=== PATIENT | female | born 1945 | race Caucasian/White ===

== ENCOUNTER 2017-08-01 09:40 | Outpatient (CLI) | payer MEDICARE ==
--- NOTE | 2017-08-01 11:09 | RAD ---
TWO VIEW CHEST: History: Dyspnea. Comparison: 06-21-17 FINDINGS: The linear and parenchymal opacity in the right middle lobe obscuring the right heart boarder is unc hanged in appearance. There also appears to be a linear opacity in the left lower lobe which appears stable. Lungs otherwise appear clear and unchanged. Prominent aortic calcification again noted. Hea rt size is unchanged. IMPRESSION: Stable chest findings. POS: [facility]
== END 2017-08-01 09:41 | disposition home or self-care (01) ==
LOC: RAD 09:40
PROVIDERS: ATTEND Internal Medicine Critical Care Medicine
DX: R06.00 Dyspnea, unspecified (principal)
CPT/HCPCS: 71020

== ENCOUNTER 2017-08-06 12:11 | Outpatient (CLI) | payer MEDICARE ==
--- NOTE | 2017-08-06 16:14 | CT ---
CT OF THE THORAX WITHOUT CONTRAST: Date: 08/06/17 INDICATION: Infiltrate. COMPARISON: Radiograph dated 08/01/17. FINDINGS: There are areas of subsegmental volume loss within the right middle lobe, as well as the inferior collins gula. There is eccentric debris seen within the distal right interlobar bronchus and distal right lisa nstem bronchus which may reflect mucus. Small endobronchial lesion cannot be entirely excluded. Solid area of reticulonodularity within the superior segment of the right upper lobe on image 27 of series 3. There is scattered emphysema. There are coronary artery and thoracic aortic calcifications. Visua lized upper abdomen demonstrates normal appearing adrenal glands. Unopacified liver, spleen, and panc reas are unremarkable. No definite acute osseous abnormality is evident. IMPRESSION: 1. Soft tissue nodularity seen within the right mainstem bronchus and right interlobar bronchus may reflect mucus debris or possibly a small endobronchial lesion. Recommend follow-up examination in 6-8 weeks with vigorous coughing prior to the lung scan to demonstrate clearance. 2. Areas of subsegmental volume loss within the inferior lingula and right middle lobe likely corres ponds to the parenchymal opacity seen on the comparison radiographs. 3. Emphysema. POS: [facility]
== END 2017-08-06 12:12 | disposition home or self-care (01) ==
LOC: CT 12:11
PROVIDERS: ATTEND Internal Medicine Critical Care Medicine
DX: R91.8 Other nonspecific abnormal finding of lung field (principal); J43.9 Emphysema, unspecified; J98.4 Other disorders of lung
CPT/HCPCS: 71250

== ENCOUNTER 2017-11-21 15:01 | Emergency (ER) | payer MEDICARE ==
[2017-11-21] MEDS ORDERED: Sodium Chloride 0.9% 100 ML ONE (15:37)
[2017-11-21] MEDS ORDERED: cefTRIAXone\\ROCEPHIN 1 GM VIAL ONE (15:37)
[2017-11-21 16:08] LABS: #Basophils 0.1 thou/uL (0.0-0.2); #Eosinphils 0.1 thou/uL (0.0-0.7); #Lymphocytes 0.8 thou/uL (1.20-3.40); #Monocytes 0.6 thou/uL (0.11-0.59); #Neutrophils 4.4 thou/uL (1.40-6.50); %Basophils 0.9 % (0.0-1.0); %Eosinophils 1.5 % (0.0-10.0); %Lymphocytes 13.3 % (21.0-51.0); %Monocytes 10.3 % (0.0-10.0); %Neutrophils 74.1 % (42.0-75.0); Hemoglobin 14.9 g/dL (12.0-16.0); Mean Corpuscular HGB CONC 33.7 g/dL (32.0-36.0); Mean Corpuscular Hemoglobin 28.9 pg (27.0-31.0); Mean Corpuscular Volume 85.6 fl (81.0-99.0); Mean Platelet Volume 7.4 fL (7.4-10.4); Platelet Count 191 thou/uL (130-400); RBC Distribution Width 12.5 % (11.5-14.5); Red Blood Cell (RBC) Count 5.16 mill/uL (4.20-5.40)
[2017-11-21 16:16] LABS: Anion Gap 17 mmol/L (10-20); BUN (Urea Nitrogen) 18 mg/dL (9.8-20.1); Calc. Creatinine Clearance 0 mL/min (70-130); Calcium 9.4 mg/dL (7.8-10.44); Carbon Dioxide 22 mmol/L (23-31); Chloride 104 mmol/L (98-107); Estimated GFR-MDRD 69; Glucose 213 mg/dL (80-115); Sodium 139 mmol/L (136-145)
[2017-11-21] MEDS ORDERED: HYDROcodone/Acetaminophen 5/325 mg Tablet ONE (16:31)
== END 2017-11-21 16:40 | disposition home or self-care (01) ==
LOC: SCSER 15:01
DX: S51.851A Open bite of right forearm, initial encounter (principal); I10 Essential (primary) hypertension; I25.2 Old myocardial infarction; I25.10 Atherosclerotic heart disease of native coronary artery without angina pectoris; I73.9 Peripheral vascular disease, unspecified; J44.9 Chronic obstructive pulmonary disease, unspecified; F32.9 Major depressive disorder, single episode, unspecified; E11.9 Type 2 diabetes mellitus without complications; Z79.84 Long term (current) use of oral hypoglycemic drugs; Z79.899 Other long term (current) drug therapy; Z87.891 Personal history of nicotine dependence; Z79.82 Long term (current) use of aspirin; W55.01XA Bitten by cat, initial encounter
CPT/HCPCS: 80048; 85025; 96365; J0696; J7050

== ENCOUNTER 2017-12-04 09:33 | Outpatient (CLI) | payer MEDICARE ==
--- NOTE | 2017-12-04 10:46 | RAD ---
CHEST TWO VIEWS: Comparison: 08-01-17 History: Dyspnea. FINDINGS: Atherosclerosis of the aorta. Normal cardiac silhouette. The pulmonary vessels and hilum are normal. Costophrenic angles are clear. Hyperinflation without consolidation or mass. No pneumothorax or osseo us abnormalities. IMPRESSION: 1. Atherosclerosis. 2. No acute cardiopulmonary process. POS: [facility]
== END 2017-12-04 09:34 | disposition home or self-care (01) ==
LOC: RAD 09:33
PROVIDERS: ATTEND Internal Medicine Critical Care Medicine
DX: R06.00 Dyspnea, unspecified (principal); I70.0 Atherosclerosis of aorta
CPT/HCPCS: 71046

== ENCOUNTER 2017-12-19 09:37 | Emergency (ER) | payer MEDICARE ==
[2017-12-19] MEDS ORDERED: Lidocaine 1% w/Epinephrine 1:100K 20 ML VIAL ONE (09:53)
== END 2017-12-19 10:35 | disposition home or self-care (01) ==
LOC: SCSER 09:37
DX: S61.213A Laceration without foreign body of left middle finger without damage to nail, initial encounter (principal); E11.9 Type 2 diabetes mellitus without complications; I10 Essential (primary) hypertension; I73.9 Peripheral vascular disease, unspecified; J45.909 Unspecified asthma, uncomplicated; J44.9 Chronic obstructive pulmonary disease, unspecified; F32.9 Major depressive disorder, single episode, unspecified; Z79.4 Long term (current) use of insulin; Z79.899 Other long term (current) drug therapy; Z79.82 Long term (current) use of aspirin; W26.0XXA Contact with knife, initial encounter
CPT/HCPCS: 12001; J2001

== ENCOUNTER 2018-01-08 12:38 | Emergency (ER) | payer MEDICARE ==
[2018-01-08] MEDS ORDERED: Bacitracin Zinc Ointment 30 gm TUBE ONE (13:10)
[2018-01-08] MEDS ORDERED: Bacitracin Zinc 1 Packet ONE (13:11)
--- NOTE | 2018-01-08 13:20 | RAD ---
THREE VIEWS OF THE LEFT ANKLE: COMPARISON: None. HISTORY: Left ankle pain after falling in the flower bed. FINDINGS: Three views left ankle show a spiral fracture of the distal fibula. Mild diffuse surrounding soft ti ssue swelling is seen. No degenerative changes are present. IMPRESSION: Distal fibula fracture. POS: [facility]
[2018-01-08] MEDS ORDERED: Morphine 10 MG/ML VIAL ONE (13:26)
== END 2018-01-08 13:43 | disposition home or self-care (01) ==
LOC: SCSER 12:38
DX: S82.832A Other fracture of upper and lower end of left fibula, initial encounter for closed fracture (principal); S51.012A Laceration without foreign body of left elbow, initial encounter; E11.9 Type 2 diabetes mellitus without complications; I10 Essential (primary) hypertension; I25.2 Old myocardial infarction; I25.10 Atherosclerotic heart disease of native coronary artery without angina pectoris; J44.9 Chronic obstructive pulmonary disease, unspecified; F32.9 Major depressive disorder, single episode, unspecified; Z79.4 Long term (current) use of insulin; Z79.82 Long term (current) use of aspirin; Z79.899 Other long term (current) drug therapy; W19.XXXA Unspecified fall, initial encounter
CPT/HCPCS: 96372; J2270

== ENCOUNTER 2018-08-08 10:01 | Outpatient (CLI) | payer MEDICARE ==
--- NOTE | 2018-08-08 11:31 | MMO ---
BILATERAL DIGITAL SCREENING MAMMOGRAMS: Date: 08/08/18 HISTORY: 72-year-old female presents for digital screening mammogram. COMPARISON: 08/07/17, 08/01/16, 07/30/15, and 07/25/13. FINDINGS: This patient's mammogram was interpreted with the assistance of computer-aided detection. Scattered areas of fibroglandular density are noted bilaterally. There are stable typically benign ca lcifications. No direct or indirect evidence of malignancy. IMPRESSION: BIRADS 2: Benign Finding(s) Continue routine screening. POS: [facility]
== END 2018-08-08 10:02 | disposition home or self-care (01) ==
LOC: SCSMAMMO 10:01
PROVIDERS: ATTEND Family Medicine
DX: Z12.31 Encounter for screening mammogram for malignant neoplasm of breast (principal)
CPT/HCPCS: 77067

== ENCOUNTER 2019-03-19 08:34 | Emergency (ER) | payer MEDICARE ==
[2019-03-19 09:45] LABS: #Basophils 0.1 thou/uL (0.0-0.2); #Eosinphils 0.2 thou/uL (0.0-0.7); #Lymphocytes 1.7 thou/uL (1.20-3.40); #Monocytes 0.7 thou/uL (0.11-0.59); #Neutrophils 5.4 thou/uL (1.40-6.50); %Basophils 1.3 % (0.0-1.0); %Eosinophils 2.7 % (0.0-10.0); %Lymphocytes 20.5 % (21.0-51.0); %Monocytes 8.1 % (0.0-10.0); %Neutrophils 67.5 % (42.0-75.0); Hemoglobin 14.5 g/dL (12.0-16.0); Mean Corpuscular HGB CONC 33.1 g/dL (32.0-36.0); Mean Corpuscular Hemoglobin 29.3 pg (27.0-31.0); Mean Corpuscular Volume 88.5 fL (78.0-98.0); Mean Platelet Volume 7.2 fL (7.4-10.4); Platelet Count 248 thou/uL (130-400); RBC Distribution Width 12.5 % (11.5-14.5); Red Blood Cell (RBC) Count 4.94 mill/uL (4.20-5.40); White Blood Cell (WBC) Count 8.1 thou/uL (4.8-10.8)
[2019-03-19] MEDS ORDERED: Ondansetron PF 4 MG/2 ML Vial ONE (10:12)
[2019-03-19] MEDS ORDERED: Morphine 4 MG/ML VIAL ONE (10:12)
[2019-03-19 10:25] LABS: ALT (SGPT) 19 U/L (8-55); AST (SGOT) 15 U/L (5-34); Albumin 3.9 g/dL (3.4-4.8); Alkaline Phosphatase 96 U/L (40-150); BUN (Urea Nitrogen) 27 mg/dL (9.8-20.1); Bilirubin, Total 0.4 mg/dL (0.2-1.2); Calc. Creatinine Clearance 0 mL/min (70-130); Calcium 9.8 mg/dL (7.8-10.44); Carbon Dioxide 25 mmol/L (23-31); Chloride 103 mmol/L (98-107); Estimated GFR-MDRD 48; Globulin 3.4 g/dL (2.4-3.5); Glucose 147 mg/dL (83-110); Lipase 25 U/L (8-78); Potassium 4.4 mmol/L (3.5-5.1); Protein, Total 7.3 g/dL (6.0-8.3); Sodium 141 mmol/L (136-145)
[2019-03-19 10:26] LABS: Anion Gap 17 mmol/L (10-20)
[2019-03-19] MEDS ORDERED: metroNIDAZOLE 250 MG TAB ONE (12:16)
[2019-03-19] MEDS ORDERED: Ciprofloxacin 500 MG TAB ONE (12:16)
--- NOTE | 2019-03-19 13:29 | CT ---
CT OF THE ABDOMEN AND PELVIS WITH CONTRAST: COMPARISON: 10/28/2013. HISTORY: Abdominal pain for 9 days. The patient has had bloody stools for 3 days. TECHNIQUE: Multiple contiguous axial images were obtained in a CT of the abdomen and pelvis with contrast. P.o. contrast was administered. Coronal reformats were performed. FINDINGS: Scattered diverticula in the colon. These are more prominent in the sigmoid colon. There is subtle stranding change subjacent to the colon at the junction of the descending colon and sigmoid colon. These findings are consistent with acute diverticulitis. The small bowel is unremarkable. No free a ir, free fluid, or stranding changes are seen in the abdomen or pelvis. The liver, gallbladder, adrenal glands, spleen, and pancreas are unremarkable. The patient has a hor seshoe kidney without other significant abnormality of the kidneys. The patient is status post hysterectomy. No abdominal or pelvic lymphadenopathy are seen. Atheroscl erotic calcifications are seen in the aorta. Degenerative changes are seen in the spine. The visualized inferior thorax and abdominal wall soft t issues are unremarkable. IMPRESSION: 1. Acute diverticulitis. 2. Horseshoe kidney. POS: [facility]
== END 2019-03-19 12:50 | disposition home or self-care (01) ==
LOC: ERS 08:34
DX: K57.92 Diverticulitis of intestine, part unspecified, without perforation or abscess without bleeding (principal); I10 Essential (primary) hypertension; E86.0 Dehydration; F32.9 Major depressive disorder, single episode, unspecified; E11.51 Type 2 diabetes mellitus with diabetic peripheral angiopathy without gangrene; I25.2 Old myocardial infarction; I25.10 Atherosclerotic heart disease of native coronary artery without angina pectoris; J44.9 Chronic obstructive pulmonary disease, unspecified
CPT/HCPCS: 36415; 74177; 80053; 83605; 83690; 85025; 93005; 96361; 96374; 96375; J2270; J2405

== ENCOUNTER 2019-07-07 08:02 | Outpatient (CLI) | payer MEDICARE ==
--- NOTE | 2019-07-07 10:37 | CT ---
CT ABDOMEN AND PELVIS WITH IV CONTRAST 07/07/2019 CLINICAL INFORMATION: Left lower quadrant abdominal pain for 5 months. COMPARISON: 03/19/2019 Technique: Multiple contiguous axial CT images are obtained through the abdomen and pelvis with IV contrast. Cor onal reformatted images are provided. FINDINGS: Lower Chest: Vascular calcifications are seen in the coronary arteries as well as involving the thora cic aorta. There is minimal atelectasis present in the lingula. A 4 mm noncalcified pulmonary nodule is seen at the posterior medial right lung base. Vessels: Vascular calcifications are seen in the abdominal aorta and involving the iliac arteries. Abdomen: Portal vein:Patent Gallbladder: Within normal limits for CT imaging. Liver: within normal limits. Spleen: within normal limits. Pancreas: within normal limits. Adrenals: within normal limits. Kidneys: There is a horseshoe shaped kidney present. There is no hydronephrosis, and no renal calculi are visualized. Bowel: There is colonic diverticulosis without CT evidence of diverticulitis. Loops of small bowel ar e normal in caliber. Appendix: Not visualized. Patient reports history of prior appendectomy. Peritoneum: No ascites or free air; no fluid collection. Mesentery and Retroperitoneum: No enlarged mesenteric or retroperitoneal lymph nodes. Abdominal Wall: Small fat-containing umbilical hernia is present. Heterogeneous lobulated areas with position of associated fat density are seen in the gluteal subcutaneous adipose layer bilaterally which may be related to areas of fat necrosis and/or sites of prior injection. Pelvis: Reproductive Organs: Evidence of hysterectomy. Pelvis within normal limits. Bladder: within normal limits. Bones: No suspicious lytic or sclerotic osseous lesions are identified. IMPRESSION: 1. No acute findings are seen in the abdomen or pelvis. 2. Colonic diverticulosis without CT evidence of diverticulitis. 3. Horseshoe-shaped kidney. 4. Dense vascular calcifications.. 5. Stable 4 mm noncalcified pulmonary nodule right lower lobe.
[2019-07-07] MEDS ORDERED: Iopamidol 370 76% 100 ML VIAL ONE (13:42)
== END 2019-07-07 08:03 | disposition home or self-care (01) ==
LOC: CT 08:02
PROVIDERS: ATTEND Internal Medicine
DX: K57.32 Diverticulitis of large intestine without perforation or abscess without bleeding (principal); R10.32 Left lower quadrant pain; R85.89 Other abnormal findings in specimens from digestive organs and abdominal cavity; R91.1 Solitary pulmonary nodule
CPT/HCPCS: 74177; 82565; Q9967

== ENCOUNTER 2019-07-22 08:29 | Day surgery (SDC) | payer MEDICARE ==
[2019-07-21 13:19] VITALS: BMI 37.4
--- NOTE | 2019-07-22 15:07 | OP ---
DATE OF PROCEDURE: 07/22/2019 BRICK PITCHER SURGEON: None. PROCEDURE PERFORMED: Colonoscopy with snare polypectomy. INDICATIONS: 1. Positive Cologuard screening. 2. Left lower quadrant pain, improved. 3. Follow up recent history of diverticulitis. 4. This is the patient's first colonoscopy. MEDICATIONS: See Anesthesia record. FINDINGS: After discussion of the risks, benefits, and alternatives of the procedure, informed consent was obtained and witnessed. Pre-endoscopic cardiopulmonary examination was satisfactory. Time-out was performed before sedation was achieved. Sedation was achieved with Anesthesia assistance in the endoscopy unit. Digital rectal exam was performed, which was unremarkable. A Pentax adult colonoscope was inserted into the anus and passed forward to the cecum in the usual fashion. The cecal base was identified by the appendiceal orifice as well as the ileocecal valve. The terminal ileum was intubated, and the ileal mucosa appeared normal. The colonoscope was then slowly withdrawn in a gradual and circumferential manner with careful examination of the entire colonic mucosa. The quality of the prep was good. There were 5 sessile polyps in the ascending colon, measuring from 2 to 8 mm in diameter. These were all completely removed with hot and cold snare polypectomy, and retrieved for pathology. In the transverse colon, there were 3 sessile polyps measuring from 1 to 6 mm in diameter. These were completely removed with hot and cold snare. Only the largest polyp was able to be retrieved for pathology. In the descending colon, there were 4 sessile polyps, all measuring between 3 and 7 mm in diameter. These were all completely removed with hot snare and retrieved for pathology. In the sigmoid colon, there was a larger polyp measuring 1 cm in diameter, this was on a short stalk. It was completely removed with hot snare and retrieved for pathology. There was diverticulosis throughout the left side of the colon, but no evidence of active diverticulitis. Retroflexion in the rectum demonstrated no additional abnormalities. The colonoscope was completely withdrawn, and the patient allowed to recover. The patient tolerated the procedure well. There were no immediate postprocedure complications. IMPRESSION: 1. 13 colon polyps, all completely removed with hot and cold snare as detailed above, most of the polyps retrieved for pathology as detailed above. 2. Left-sided diverticulosis. 3. Otherwise normal exam to the terminal ileum. RECOMMENDATIONS: 1. Follow up pathology on the colon polyps. 2. Repeat colonoscopy for surveillance in 1 year. Job ID: [id number]
[2019-07-22] MEDS ORDERED: PROPOFOL 200 MG/20 ML VIAL ONE (15:26)
== END 2019-07-22 12:40 | disposition home or self-care (01) ==
LOC: SDC 08:29
PROVIDERS: ATTEND Internal Medicine
PROC: 0DBK8ZX Excision of Ascending Colon, Via Natural or Artificial Opening Endoscopic, Diagnostic (ICD-10-PCS; principal; 2019-07-22)
PROC: 0DBL8ZX Excision of Transverse Colon, Via Natural or Artificial Opening Endoscopic, Diagnostic (ICD-10-PCS; 2019-07-22)
PROC: 0DBM8ZX Excision of Descending Colon, Via Natural or Artificial Opening Endoscopic, Diagnostic (ICD-10-PCS; 2019-07-22)
PROC: 0DBN8ZX Excision of Sigmoid Colon, Via Natural or Artificial Opening Endoscopic, Diagnostic (ICD-10-PCS; 2019-07-22)
DX: D12.2 Benign neoplasm of ascending colon (principal); D12.3 Benign neoplasm of transverse colon; D12.4 Benign neoplasm of descending colon; D12.5 Benign neoplasm of sigmoid colon; K57.30 Diverticulosis of large intestine without perforation or abscess without bleeding; J44.9 Chronic obstructive pulmonary disease, unspecified; I48.91 Unspecified atrial fibrillation; I25.10 Atherosclerotic heart disease of native coronary artery without angina pectoris; E11.9 Type 2 diabetes mellitus without complications; F41.9 Anxiety disorder, unspecified; M19.90 Unspecified osteoarthritis, unspecified site; F32.9 Major depressive disorder, single episode, unspecified; I25.2 Old myocardial infarction; I10 Essential (primary) hypertension; E66.9 Obesity, unspecified; Z68.37 Body mass index [BMI] 37.0-37.9, adult; Z79.4 Long term (current) use of insulin; Z79.51 Long term (current) use of inhaled steroids; Z79.82 Long term (current) use of aspirin; Z79.899 Other long term (current) drug therapy; Z88.2 Allergy status to sulfonamides; Z88.5 Allergy status to narcotic agent; Z88.8 Allergy status to other drugs, medicaments and biological substances; Z91.018 Allergy to other foods; Z95.5 Presence of coronary angioplasty implant and graft
CPT/HCPCS: 36416; 88305

== ENCOUNTER 2020-02-22 09:31 | Inpatient (IN) | payer MEDICARE ==
[2020-02-22] MEDS ORDERED: Sodium Chloride 0.9% 1,000 ML IV SCH (10:00)
[2020-02-22] MEDS ORDERED: HYDROcodone/Acetaminophen 5/325 mg Tablet PO PRN ×2 (10:00)
[2020-02-22 10:10] LABS: #Eosinphils 0.1 thou/uL (0.0-0.7); #Lymphocytes 1.2 thou/uL (1.20-3.40); #Monocytes 0.4 thou/uL (0.11-0.59); #Neutrophils 3.6 thou/uL (1.40-6.50); %Basophils 0.7 % (0.0-1.0); %Eosinophils 0.9 % (0.0-10.0); %Lymphocytes 23.6 % (21.0-51.0); %Monocytes 6.7 % (0.0-10.0); Hemoglobin 13.9 g/dL (12.0-16.0); Mean Corpuscular HGB CONC 32.5 g/dL (32.0-36.0); Mean Corpuscular Hemoglobin 30.6 pg (27.0-31.0); Mean Platelet Volume 7.4 fL (7.4-10.4); Platelet Count 212 thou/uL (130-400); RBC Distribution Width 12.9 % (11.5-14.5); Red Blood Cell (RBC) Count 4.55 mill/uL (4.20-5.40); White Blood Cell (WBC) Count 5.3 thou/uL (4.8-10.8)
[2020-02-22 10:26] LABS: Lactic Acid 2.8 mmol/L (0.5-2.2)
[2020-02-22 10:31] LABS: ALT (SGPT) 20 U/L (8-55); AST (SGOT) 13 U/L (5-34); Albumin 3.7 g/dL (3.4-4.8); Alkaline Phosphatase 80 U/L (40-110); Anion Gap 17 mmol/L (10-20); BUN (Urea Nitrogen) 25 mg/dL (9.8-20.1); Bilirubin, Total 0.7 mg/dL (0.2-1.2); Calc. Creatinine Clearance 0 mL/min (70-130); Calcium 8.7 mg/dL (7.8-10.44); Carbon Dioxide 20 mmol/L (23-31); Chloride 101 mmol/L (98-107); Estimated GFR-MDRD 32; Globulin 3.1 g/dL (2.4-3.5); Protein, Total 6.8 g/dL (6.0-8.3); Sodium 134 mmol/L (136-145)
[2020-02-22 10:35] LABS: Glucose 648 mg/dL (83-110)
[2020-02-22] MEDS ORDERED: Cefepime 2 GM VIAL ONE (10:39)
[2020-02-22] MEDS ORDERED: Insulin Regular 300 UNITS/3 ML VIAL ONE (10:39)
[2020-02-22] MEDS ORDERED: Sodium Chloride 0.9% 100 ML ONE (10:40)
[2020-02-22] MEDS ORDERED: HYDROcodone/Acetaminophen 5/325 mg Tablet ONE (10:41)
[2020-02-22 12:54] VITALS: BMI 37.8
[2020-02-22] MEDS ORDERED: Morphine 2 MG/ML SYRINGE SLOW IVP PRN (14:27)
[2020-02-22] MEDS ORDERED: Vancomycin 1 GM in Premix Bag 1 BAG IVPB SCH (14:30)
[2020-02-22] MEDS ORDERED: Insulin Glargine 10 UNITS in Pre-Filled Syringe 1 EACH SC SCH (14:30)
[2020-02-22] MEDS ORDERED: Non-Formulary Item 1 EACH (Albuterol Sulfate [Proair Hfa] 2 PUFF) INH PRN (14:31)
[2020-02-22] MEDS ORDERED: Nitroglycerin 0.4 MG TAB (25 Tab Bottle) SL PRN (14:31)
[2020-02-22] MEDS ORDERED: Budesonide 0.5 MG/2 ML NEB NEB PRN (14:31)
[2020-02-22] MEDS ORDERED: Bisacodyl 5 MG TAB PO PRN (14:37)
[2020-02-22] MEDS ORDERED: Dextrose 50% Abboject 50 ML SYRINGE SLOW IVP PRN (14:44)
[2020-02-22] MEDS ORDERED: Dextrose 5% in Water 1,000 ML IV PRN (14:44)
[2020-02-22] MEDS: Sodium Chloride 0.9% 1,000 ML IV SCH (14:57)
[2020-02-22] MEDS: Heparin 5,000 UNITS/ML VIAL SC SCH ×2 (14:57→22:08)
[2020-02-22] MEDS ORDERED: hydrALAZINE 20 MG/ML VIAL SLOW IVP PRN (15:09)
[2020-02-22] MEDS: Lidocaine 5% Patch TD SCH (15:20)
[2020-02-22] MEDS: HumaLOG 300 UNITS/3 ML VIAL SC PRN ×2 (15:24→16:51)
--- NOTE | 2020-02-22 15:54 | HP ---
PRIMARY CARE PROVIDER: Kerwin Ott MD CHIEF COMPLAINT: Rash. HISTORY OF PRESENT ILLNESS: Ms. Jewell is a pleasant 74-year-old lady who was seen at [facility] on February 22, 2020. She has COPD and has a history of chronic cough that is productive of clear sputum. The symptom has not changed recently. She also has a history of chronic shortness of breath that appears to have mildly worsened over the last few days. She reports that she had a temperature of 102 degrees Fahrenheit yesterday. Today morning, she noticed that she had a rash over her left edgar. She reports that the rash is painful, sharp, 10/10 at its worst and nonradiating. She cannot recall any aggravating or relieving factors. She presented to the emergency room because of the rash and fever. REVIEW OF SYSTEMS: All systems were reviewed and found to be negative except for the pertinent positives mentioned above. PAST MEDICAL HISTORY: Hypertension; diabetes mellitus type 2, insulin dependent; dyslipidemia; morbid obesity; chronic obstructive pulmonary disease; multiple episodes of cellulitis. PAST SURGICAL HISTORY: Hysterectomy, mastectomy, cardiac catheterization. CODE STATUS: I discussed her code status. She is DNAR. SOCIAL HISTORY: She is an ex-smoker. She denies alcohol use or recreational drug use. FAMILY HISTORY: Breast cancer in mother and sister. ALLERGIES: CODEINE, SULFAMETHOXAZOLE, TRAMADOL, AND TRIMETHOPRIM. CURRENT MEDICATIONS: 1. DuoNeb p.r.n. 2. Aspirin 81 mg daily. 3. Edarbyclor 40/12.5 mg daily. 4. Pulmicort nebulizer p.r.n. 5. Vitamin B12 of 1000 mcg daily. 6. Lexapro 10 mg daily. 7. Premarin 1.25 mg daily. 8. TriCor 145 mg at bedtime. 9. Fluconazole 100 mg as directed. 10. Vascepa 2 g 2 times a day. 11. Lantus by sliding scale. 12. Humalog insulin as directed. 13. Imdur 60 mg daily. 14. Ativan 1 mg at bedtime as needed. 15. Dulera 200/5 mcg 2 puffs 2 times a day. 16. Nitroglycerin p.r.n. 17. Zocor 10 mg at bedtime. 18. Topiramate 50 mg 2 times a day. 19. Mucinex 1200 mg 2 times a day. 20. ProAir HFA 2 puffs four times a day as needed. 21. Surrency p.r.n. 22. Spiriva 18 mcg inhalation daily. PHYSICAL EXAMINATION: GENERAL: On examination, Ms. Jewell is awake and alert, not in acute distress. VITAL SIGNS: Blood pressure is 183/87, pulse 81, respiratory rate 18, and oxygen saturation 96% on room air. She is afebrile. She is obese with a BMI of 37.8. EYES: No scleral icterus. No conjunctival pallor. ENT: Dry mucosal membranes. No oropharyngeal erythema or exudates. NECK: Supple, nontender, trachea is midline. RESPIRATORY: Accessory muscles of breathing are not active. Chest wall movements are symmetric bilaterally. LUNGS: Clear to auscultation without wheeze, rhonchi, or crepitations. She has diminished breath sounds at both bases. CARDIOVASCULAR: S1 and S2 are heard, regular. Peripheral pulses palpable. ABDOMEN: Soft, nontender, bowel sounds are heard. NEUROLOGIC: Cranial nerves 2 through 12 are intact. MUSCULOSKELETAL: Power is 5/5 in all 4 extremities. SKIN: She has rash over the anterior aspect of her left edgar, as documented in the wound photo. The rash is tender. LYMPHATIC: No cervical lymphadenopathy. PSYCHIATRIC: Normal mood. Normal affect. The patient is oriented to person, place, and time. LABORATORY DATA: Ms. Jewell's labs and investigations were reviewed. She has normal CBC, decreased sodium of 134, normal potassium, elevated blood urea nitrogen of 25, elevated creatinine of 1.58, elevated lactic acid of 2.8, and elevated blood glucose of 648. LFTs are normal. ASSESSMENT AND PLAN: Ms. Jewell is a pleasant 74-year-old lady who was seen at [facility] on February 22, 2020. Her problem list includes: 1. Cellulitis: Ms. Jewell is presenting with cellulitis of the left lower extremity. She will be admitted to the hospital for further management. She has received vancomycin and cefepime in the emergency room. I will continue vancomycin and start her on Zosyn and clindamycin until the rash improves, then we will deescalate antibiotics. I will also consult Infectious Disease Service for opinion and help with management. Blood cultures have also been sent. 2. Diabetes mellitus type 2: Poorly controlled. She has received 10 units of Novolin R insulin in the emergency room. I will administer 10 units of Lantus at this time and start her on aggressive insulin sliding scale. 3. [id number] stage 3 renal failure: Clinically, she appears dehydrated. I will start her on intravenous fluids and recheck her creatinine. 4. Chronic obstructive pulmonary disease: She does not appear to be in chronic obstructive pulmonary disease exacerbation at this time. I will continue her home medications. 5. Hyponatremia: Mild, likely pseudohyponatremia secondary to elevated blood glucose. 6. Lactic acidosis: Likely secondary to infection. 7. Hypertension: Her blood pressure is high. I will resume her home medications and we will add p.r.n. IV hydralazine. Many thanks for allowing me to participate in your patient's care. Please feel free to contact me with any questions or concerns. LEVEL OF RISK: Moderate. LEVEL OF COMPLEXITY: Moderate. Job ID: [id number]
[2020-02-22] MEDS ORDERED: Vancomycin HCl 750 MG in Sodium Chloride 0.9% 250 ML 250 ML IVPB SCH (16:00)
[2020-02-22] MEDS ORDERED: Clindamycin/D5W 900 MG in Premix Bag 1 BAG IVPB SCH ×2 (16:00→22:00)
[2020-02-22] MEDS ORDERED: Insulin Regular 300 UNITS/3 ML VIAL SC SCH (16:45)
[2020-02-22] MEDS: cefTRIAXone\\ROCEPHIN 1 GM in Sodium Chloride 0.9% 100 ML IVPB SCH (16:50)
[2020-02-22] MEDS ORDERED: Piperacillin/Tazobactam 2.25 GM in Sodium Chloride 0.9% 100 ML IVPB SCH ×2 (17:00→18:00)
[2020-02-22] MEDS: Mometasone 200 MCG/Formoterol 5 MCG 120 PUFF INHALER INH SCH (19:36)
[2020-02-22] MEDS ORDERED: Cefepime 2 GM in Sodium Chloride 0.9% 100 ML IVPB SCH (21:00)
[2020-02-22] MEDS: Simvastatin 5 MG TAB PO SCH (22:07)
[2020-02-22] MEDS: Fenofibrate Nanocrystallized 145 MG TAB PO SCH (22:08)
[2020-02-22] MEDS: Topiramate 25 MG TAB PO SCH (22:08)
[2020-02-22] MEDS: guaiFENesin ER 600 MG TAB PO SCH (22:08)
[2020-02-22] MEDS: Insulin Glargine 20 UNITS in Pre-Filled Syringe 1 EACH SC SCH (22:14)
[2020-02-22] MEDS: HYDROcodone/Acetaminophen 5/325 mg Tablet PO PRN (22:18)
[2020-02-22] MEDS: Icosapent Ethyl 1 GM CAPSULE PO SCH (22:23)
--- NOTE | 2020-02-22 22:48 | CON ---
DATE OF CONSULTATION: 02/22/2020 HISTORY OF PRESENT ILLNESS: Ms. Jewell is a 74-year-old lady who has a history of type 2 diabetes, obesity, hypertension, and essential tremors, who sustained a cat bite a few days ago and developed cellulitis in the left leg following this event. She was admitted after she developed fever and has been on antimicrobial therapy with clindamycin. She is also on Zosyn and vancomycin. She has pain at the site, but no headaches, visual symptoms, sore throat, odynophagia, dysphagia, no cough or sputum production, chest pain. No abdominal pain, diarrhea. No genitourinary symptoms. No joint symptoms. PAST MEDICAL HISTORY: Coronary artery disease, type 2 diabetes, hypertension, hyperlipidemia, essential tremor, peripheral vascular disease, COPD. PAST SURGICAL HISTORY: Appendectomy, hysterectomy, right breast tumor removed what she describes as cellulitis in the upper extremities is not clear, if that was truly cellulitis in the past. Two cardiac stents with angioplasty. SOCIAL HISTORY: She quit smoking in 2002. FAMILY HISTORY: Noncontributory. ALLERGIES: BACTRIM, CODEINE, TRAMADOL, AND NORCO. CURRENT MEDICATIONS: 1. [place]. 2. DuoNeb. 3. Aspirin. 4. Dulcolax. 5. Pulmicort. 6. Clindamycin. 7. Premarin. 8. Zosyn. 9. Vancomycin. PHYSICAL EXAMINATION: VITAL SIGNS: T-max 97.5, blood pressure 180/79, pulse 99, respirations 22. SKIN: Shows the area of erythema in the anterior left leg. SKIN: Somewhat rectangular-shaped area, quite tender to palpation. No blistering noted. No areas of necrosis. No lymphadenopathy. Ocular movements conjugate. Oral cavity, no augustine teeth. Mucosal surfaces are normal. NECK: Supple. No jugular vein distention. LUNGS: Symmetric. Clear breath sounds. HEART: S1 and S2, regular rate. No S3 or S4. ABDOMEN: Soft, not distended or tender. No ascites. No bladder distention. No joint inflammatory activity. Pulses are 1+ in dorsalis pedis. Plantar responses are flexor. NEUROLOGIC: Nonfocal including cognitive function. LABORATORY DATA: White cell count was normal, normal differential and a chemistry with sodium of 134, creatinine 1.58, is little bit higher than her usual is. Liver profile normal. Albumin 3.7. Blood cultures were not taken this time or maybe they are pending. No imaging studies noted at this point. ASSESSMENT: 1. Type 2 diabetes. 2. Obesity. 3. Coronary artery disease. 4. Cat bite with subsequent inflammatory changes. 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 Staphylococcus aureus less likely, streptococcal cellulitis is not ruled out. Switch her to Rocephin 1 g daily once there is further improvement and discharge planning on oral Augmentin. This sort of cat related cellulitis has a lesser chance of recurrence than the usual streptococcal cellulitis associated with venous insufficiency, so I do not think she would require a suppressive therapy after that. Job ID: [id number]
[2020-02-23] MEDS ORDERED: Lorazepam 1 MG TAB PO PRN (00:18)
[2020-02-23] MEDS: Sodium Chloride 0.9% 1,000 ML IV SCH ×2 (00:43→17:23)
[2020-02-23] MEDS: HYDROcodone/Acetaminophen 5/325 mg Tablet PO PRN ×3 (04:00→20:14)
[2020-02-23 05:58] LABS: Anion Gap 13 mmol/L (10-20); BUN (Urea Nitrogen) 24 mg/dL (9.8-20.1); Calc. Creatinine Clearance 79 mL/min (70-130); Carbon Dioxide 17 mmol/L (23-31); Chloride 112 mmol/L (98-107); Estimated GFR-MDRD 54; Glucose 192 mg/dL (83-110); Potassium 3.8 mmol/L (3.5-5.1); Sodium 138 mmol/L (136-145)
[2020-02-23 06:05] LABS: #Eosinphils 0.2 thou/uL (0.0-0.7); #Lymphocytes 1.4 thou/uL (1.20-3.40); #Monocytes 0.6 thou/uL (0.11-0.59); #Neutrophils 2.2 thou/uL (1.40-6.50); %Basophils 0.2 % (0.0-1.0); %Eosinophils 3.7 % (0.0-10.0); %Lymphocytes 32.5 % (21.0-51.0); %Monocytes 13.4 % (0.0-10.0); %Neutrophils 50.2 % (42.0-75.0); Hemoglobin 12.4 g/dL (12.0-16.0); Mean Corpuscular Hemoglobin 30.7 pg (27.0-31.0); Mean Platelet Volume 7.2 fL (7.4-10.4); Platelet Count 203 thou/uL (130-400); RBC Distribution Width 12.7 % (11.5-14.5); Red Blood Cell (RBC) Count 4.04 mill/uL (4.20-5.40); White Blood Cell (WBC) Count 4.4 thou/uL (4.8-10.8)
[2020-02-23] MEDS: HumaLOG 300 UNITS/3 ML VIAL SC PRN ×2 (06:35→12:29)
[2020-02-23] MEDS: Mometasone 200 MCG/Formoterol 5 MCG 120 PUFF INHALER INH SCH ×2 (07:14→19:07)
[2020-02-23] MEDS ORDERED: Non-Formulary Item 1 EACH (Tiotropium [Spiriva Handihaler] 18 MCG) INH SCH (09:00)
[2020-02-23] MEDS ORDERED: Zolpidem Tartrate 5 MG TAB PO PRN (09:06)
[2020-02-23] MEDS: Topiramate 25 MG TAB PO SCH ×2 (09:10→20:13)
[2020-02-23] MEDS: Aspirin Chewable 81 MG TAB PO SCH (09:10)
[2020-02-23] MEDS: Heparin 5,000 UNITS/ML VIAL SC SCH ×3 (09:10→20:12)
[2020-02-23] MEDS: Cyanocobalamin (Vitamin B-12) 1,000 MCG TAB PO SCH (09:10)
[2020-02-23] MEDS: guaiFENesin ER 600 MG TAB PO SCH ×2 (09:10→20:12)
[2020-02-23] MEDS: Escitalopram Oxalate 10 mg Tablet PO SCH (09:10)
[2020-02-23] MEDS: Icosapent Ethyl 1 GM CAPSULE PO SCH ×2 (10:45→20:13)
[2020-02-23] MEDS: Lidocaine 5% Patch TD SCH (15:16)
[2020-02-23] MEDS: cefTRIAXone\\ROCEPHIN 1 GM in Sodium Chloride 0.9% 100 ML IVPB SCH (15:17)
[2020-02-23] MEDS: Fenofibrate Nanocrystallized 145 MG TAB PO SCH (20:12)
[2020-02-23] MEDS: Simvastatin 5 MG TAB PO SCH (20:14)
--- NOTE | 2020-02-23 21:22 | PDOC.HOSPP ---
- Subjective Encounter Date: 02/23/20 Encounter Time: 10:00 Subjective: Pt seen for followup re: cellulitis. Feels better today. - Objective Vital Signs & Weight: Vital Signs (12 hours) Temp Pulse Resp BP BP Pulse Ox 02/23/20 20:00 97.8 F 60 20 113/70 95 02/23/20 18:43 97 02/23/20 12:12 97.6 F 70 18 105/69 87 L Weight Weight 220 lb I&O: 02/22/20 02/23/20 02/24/20 06:59 06:59 06:59 Intake Total 1380 Balance 1380 Result Diagrams: 02/23/20 05:05 02/23/20 05:05 Additional Labs: Accuchecks 02/23/20 02/23/20 02/23/20 20:51 16:18 12:19 POC Glucose 280 H 162 H 287 H 02/23/20 05:30 POC Glucose 212 H Hospitalist ROS - Review of Systems Constitutional: denies: fever, chills, sweats, weakness, malaise Cardiovascular: denies: chest pain, palpitations, orthopnea, paroxysmal noc. dyspnea, edema, light headedness Gastrointestinal: denies: nausea, vomiting, abdominal pain, diarrhea, constipation, melena, hematochezia Genitourinary: denies: dysuria, frequency, incontinence, hematuria, retention Musculoskeletal: denies: neck pain, shoulder pain, arm pain, back pain, hand pain, leg pain, foot pain Skin: reports: rash, other. denies: lesions, edita, bruising - Medication Medications: Active Medications Generic Name Dose Route Start Last Admin Trade Name Freq PRN Reason Stop Dose Admin Hydrocodone Bitart/Acetaminophen 1 tab 02/22/20 14:30 02/23/20 20:14 [place] 5/325 PO 1 tab Q6H PRN Administration Mild-Moderate Pain (1-5) Aspirin 81 mg 02/23/20 09:00 02/23/20 09:10 Aspirin Chewable PO 81 mg DAILY [facility] Administration Cyanocobalamin 1,000 mcg 02/23/20 09:00 02/23/20 09:10 Vitamin B-12 PO 1,000 mcg DAILY [facility] Administration Escitalopram Oxalate 10 mg 02/23/20 09:00 02/23/20 09:10 Lexapro PO 10 mg QAM [facility] Administration Estrogens Conjugated 1.25 mg 02/23/20 09:00 02/23/20 09:11 Premarin PO 1.25 mg QAM [facility] Administration Fenofibrate 145 mg 02/22/20 21:00 02/23/20 20:12 Tricor PO 145 mg HS WILLOW Administration Guaifenesin 1,200 mg 02/22/20 21:00 02/23/20 20:12 Mucinex PO 1,200 mg Q12HR [facility] Administration Heparin Sodium (Porcine) 5,000 units 02/22/20 15:00 02/23/20 20:12 Heparin SC 5,000 units TID [facility] Administration Sodium Chloride 1,000 mls @ 75 mls/hr 02/22/20 14:45 02/23/20 17:23 Normal Saline 0.9% IV 1,000 mls .[id number] [facility] Administration Insulin Glargine 20 units/ 0.2 mls @ 0 mls/hr 02/22/20 21:00 02/22/20 22:14 Miscellaneous Medication SC 0.2 mls HS [facility] Administration Ceftriaxone Sodium 1 gm/ 100 mls @ 200 mls/hr 02/22/20 16:00 02/23/20 15:17 Sodium Chloride IVPB 100 mls Q24HR [facility] Administration Insulin Human Lispro 0 units 02/22/20 14:44 02/23/20 12:29 Humalog SC 9 unit .AGGRESSIVE SLIDING PRN Administration Aggressive Correctional Scale Isosorbide Mononitrate 60 mg 02/23/20 09:00 02/23/20 09:10 Imdur PO 60 mg QAM [facility] Administration Lidocaine 1 patch 02/22/20 15:00 02/23/20 15:16 Lidoderm 5% Patch TD 1 patch 1500 WILLOW Administration Lorazepam 1 mg 02/23/20 00:18 02/23/20 00:41 Ativan PO 1 mg HSPRN PRN Administration Insomnia Miscellaneous Medication 2 gm 02/22/20 21:00 02/23/20 20:13 Vascepa PO 2 gm BID [facility] Administration Mometasone Furoate/Formoterol Fumar 2 puff 02/22/20 18:30 02/23/20 19:07 Dulera 200 Mcg/5 Mcg Inhaler INH 2 puff BID-RT [facility] Administration Simvastatin 10 mg 02/22/20 21:00 02/23/20 20:14 Zocor PO 10 mg HS [facility] Administration Topiramate 50 mg 02/22/20 21:00 02/23/20 20:13 Topamax PO 50 mg BID WILLOW Administration - Exam General - other findings: Obese Eye: anicteric sclera ENT: no oropharyngeal lesions Neck: supple, symmetric, no thyromegaly, no lymphadenopathy Heart: RRR, no gallops, no rubs, normal peripheral pulses Respiratory: CTAB, no wheezes, no rales, no ronchi Gastrointestinal: soft, non-tender, non-distended, normal bowel sounds Psychiatric: normal affect, normal behavior, A&O x 3 Hosp A/P (1) Cellulitis Code(s): L03.90 - CELLULITIS, UNSPECIFIED Status: Acute (2) CAD (coronary artery disease) Code(s): I25.10 - ATHSCL HEART DISEASE OF [place] CORONARY ARTERY W/O ANG PCTRS Status: Chronic Qualifiers: (3) COPD (chronic obstructive pulmonary disease) Status: Chronic Qualifiers: COPD type: COPD with acute exacerbation (4) DM type 2 (diabetes mellitus, type 2) Status: Chronic Qualifiers: Diabetes mellitus fpc insulin use: without ad terminal makeup operator use Diabetes mellitus complication status: with hyperglycemia Qualified Code(s): E11.65 - Type 2 diabetes mellitus with hyperglycemia (5) Dyslipidemia Code(s): E78.5 - HYPERLIPIDEMIA, UNSPECIFIED Status: Chronic (6) HTN (hypertension) Code(s): I10 - ESSENTIAL (PRIMARY) HYPERTENSION Status: Chronic Qualifiers: (7) Obesity (BMI 30-39.9) Code(s): E66.9 - OBESITY, UNSPECIFIED Status: Chronic - Plan continue antibiotics Pt has been started on ceftriaxone for 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 Blood sugars still high, will increase Lantus to 25 units HS. HTN controlled. Appreciate ID service input. COPD stable. CAD stable. Continue Vascepa.
[2020-02-23] MEDS: Insulin Glargine 20 UNITS in Pre-Filled Syringe 1 EACH SC SCH (22:05)
[2020-02-23] MEDS: Melatonin 3 MG TAB PO PRN (22:10)
[2020-02-24] MEDS: Sodium Chloride 0.9% 1,000 ML IV SCH ×2 (03:43→20:25)
[2020-02-24 05:56] LABS: #Eosinphils 0.2 thou/uL (0.0-0.7); #Lymphocytes 1.6 thou/uL (1.20-3.40); #Monocytes 0.4 thou/uL (0.11-0.59); #Neutrophils 2.3 thou/uL (1.40-6.50); %Basophils 0.6 % (0.0-1.0); %Eosinophils 3.6 % (0.0-10.0); %Lymphocytes 35.2 % (21.0-51.0); %Monocytes 8.6 % (0.0-10.0); Hemoglobin 12.4 g/dL (12.0-16.0); Mean Corpuscular HGB CONC 34.5 g/dL (32.0-36.0); Mean Corpuscular Volume 92.8 fL (78.0-98.0); Mean Platelet Volume 7.2 fL (7.4-10.4); Platelet Count 229 thou/uL (130-400); RBC Distribution Width 12.8 % (11.5-14.5); Red Blood Cell (RBC) Count 3.86 mill/uL (4.20-5.40); White Blood Cell (WBC) Count 4.5 thou/uL (4.8-10.8)
[2020-02-24 06:20] LABS: Anion Gap 10 mmol/L (10-20); BUN (Urea Nitrogen) 18 mg/dL (9.8-20.1); Calc. Creatinine Clearance 77 mL/min (70-130); Calcium 8.3 mg/dL (7.8-10.44); Carbon Dioxide 23 mmol/L (23-31); Chloride 108 mmol/L (98-107); Estimated GFR-MDRD 53; Glucose 240 mg/dL (83-110); Potassium 3.9 mmol/L (3.5-5.1); Sodium 137 mmol/L (136-145)
[2020-02-24] MEDS: Mometasone 200 MCG/Formoterol 5 MCG 120 PUFF INHALER INH SCH ×2 (06:24→18:24)
[2020-02-24] MEDS: HumaLOG 300 UNITS/3 ML VIAL SC PRN ×3 (06:31→16:57)
[2020-02-24] MEDS: HYDROcodone/Acetaminophen 5/325 mg Tablet PO PRN ×3 (09:13→21:09)
[2020-02-24] MEDS: Escitalopram Oxalate 10 mg Tablet PO SCH (09:15)
[2020-02-24] MEDS: Topiramate 25 MG TAB PO SCH ×2 (09:15→20:29)
[2020-02-24] MEDS: guaiFENesin ER 600 MG TAB PO SCH ×2 (09:15→20:28)
[2020-02-24] MEDS: Aspirin Chewable 81 MG TAB PO SCH (09:15)
[2020-02-24] MEDS: Heparin 5,000 UNITS/ML VIAL SC SCH ×3 (09:16→20:30)
[2020-02-24] MEDS: Cyanocobalamin (Vitamin B-12) 1,000 MCG TAB PO SCH (09:16)
[2020-02-24] MEDS: Icosapent Ethyl 1 GM CAPSULE PO SCH ×2 (09:16→21:03)
[2020-02-24] MEDS: Lidocaine 5% Patch TD SCH (15:21)
[2020-02-24] MEDS: cefTRIAXone\\ROCEPHIN 1 GM in Sodium Chloride 0.9% 100 ML IVPB SCH (15:22)
--- NOTE | 2020-02-24 18:58 | PDOC.HOSPP ---
- Subjective Encounter Date: 02/24/20 Encounter Time: 10:00 Subjective: Pt seen for followup re: cellulitis. Feels better today. No fevers. - Objective Vital Signs & Weight: Vital Signs (12 hours) Temp Pulse Resp BP Pulse Ox 02/24/20 18:25 95 02/24/20 18:24 95 02/24/20 16:00 98.2 F 65 18 136/78 96 02/24/20 15:00 97.7 F 65 14 127/75 96 02/24/20 08:00 96 02/24/20 07:41 97.6 F 59 L 16 117/74 96 Weight Weight 220 lb I&O: 02/23/20 02/24/20 02/25/20 06:59 06:59 06:59 Intake Total 1380 Balance 1380 Result Diagrams: 02/24/20 05:46 02/24/20 05:46 Additional Labs: Accuchecks 02/24/20 02/24/20 02/24/20 16:10 11:19 05:18 POC Glucose 219 H 194 H 257 H 02/23/20 20:51 POC Glucose 280 H Labs and MARs reviewed by mt Hospitalist ROS - Review of Systems Gastrointestinal: denies: nausea, vomiting, abdominal pain, diarrhea, constipation, melena, hematochezia Genitourinary: denies: dysuria, frequency, incontinence, hematuria, retention Skin: reports: rash - Medication Medications: Active Medications Generic Name Dose Route Start Last Admin Trade Name Freq PRN Reason Stop Dose Admin Hydrocodone Bitart/Acetaminophen 1 tab 02/22/20 14:30 02/24/20 15:21 [place] 5/325 PO 1 tab Q6H PRN Administration Mild-Moderate Pain (1-5) Aspirin 81 mg 02/23/20 09:00 02/24/20 09:15 Aspirin Chewable PO 81 mg DAILY WILLOW Administration Cyanocobalamin 1,000 mcg 02/23/20 09:00 02/24/20 09:16 Vitamin B-12 PO 1,000 mcg DAILY WILLOW Administration Escitalopram Oxalate 10 mg 02/23/20 09:00 02/24/20 09:15 Lexapro PO 10 mg QAM WILLOW Administration Estrogens Conjugated 1.25 mg 02/23/20 09:00 02/24/20 09:16 Premarin PO 1.25 mg QAM WILLOW Administration Fenofibrate 145 mg 02/22/20 21:00 02/23/20 20:12 Tricor PO 145 mg HS WILLOW Administration Guaifenesin 1,200 mg 02/22/20 21:00 02/24/20 09:15 Mucinex PO 1,200 mg Q12HR WILLOW Administration Heparin Sodium (Porcine) 5,000 units 02/22/20 15:00 02/24/20 15:21 Heparin SC 5,000 units TID WILLOW Administration Sodium Chloride 1,000 mls @ 75 mls/hr 02/22/20 14:45 02/24/20 03:43 Normal Saline 0.9% IV 1,000 mls .[id number] WILLOW Administration Ceftriaxone Sodium 1 gm/ 100 mls @ 200 mls/hr 02/22/20 16:00 02/24/20 15:22 Sodium Chloride IVPB 100 mls Q24HR WILLOW Administration Insulin Human Lispro 0 units 02/22/20 14:44 02/24/20 16:57 Humalog SC 6 unit .AGGRESSIVE SLIDING PRN Administration Aggressive Correctional Scale Isosorbide Mononitrate 60 mg 02/23/20 09:00 02/24/20 09:15 Imdur PO 60 mg QAM WILLOW Administration Lidocaine 1 patch 02/22/20 15:00 02/24/20 15:21 Lidoderm 5% Patch TD 1 patch 1500 WILLOW Administration Lorazepam 1 mg 02/23/20 00:18 02/23/20 00:41 Ativan PO 1 mg HSPRN PRN Administration Insomnia Melatonin 3 mg 02/23/20 09:06 02/23/20 22:10 Melatonin PO 3 mg HS PRN Administration Insomnia Miscellaneous Medication 2 gm 02/22/20 21:00 02/24/20 09:16 Vascepa PO 2 gm BID WILLOW Administration Mometasone Furoate/Formoterol Fumar 2 puff 02/22/20 18:30 02/24/20 18:24 Dulera 200 Mcg/5 Mcg Inhaler INH 2 puff BID-RT WILLOW Administration Simvastatin 10 mg 02/22/20 21:00 02/23/20 20:14 Zocor PO 10 mg HS WILLOW Administration Topiramate 50 mg 02/22/20 21:00 02/24/20 09:15 Topamax PO 50 mg BID WILLOW Administration - Exam General Appearance: awake alert General - other findings: Obesity Eye: anicteric sclera ENT: moist mucosa Neck: supple, symmetric Heart: RRR Respiratory: CTAB Gastrointestinal: soft, non-tender Skin - other findings: cellulitis improving Psychiatric: normal affect, normal behavior Hosp A/P (1) Cellulitis Code(s): L03.90 - CELLULITIS, UNSPECIFIED Status: Acute (2) COPD (chronic obstructive pulmonary disease) Status: Chronic Qualifiers: COPD type: COPD with acute exacerbation (3) CAD (coronary artery disease) Code(s): I25.10 - ATHSCL HEART DISEASE OF [place] CORONARY ARTERY W/O ANG PCTRS Status: Chronic Qualifiers: (4) DM type 2 (diabetes mellitus, type 2) Status: Chronic Qualifiers: Diabetes mellitus fpc insulin use: without fpc use Diabetes mellitus complication status: with hyperglycemia Qualified Code(s): E11.65 - Type 2 diabetes mellitus with hyperglycemia (5) Dyslipidemia Code(s): E78.5 - HYPERLIPIDEMIA, UNSPECIFIED Status: Chronic (6) HTN (hypertension) Code(s): I10 - ESSENTIAL (PRIMARY) HYPERTENSION Status: Chronic Qualifiers: (7) Obesity (BMI 30-39.9) Code(s): E66.9 - OBESITY, UNSPECIFIED Status: Chronic - Plan continue antibiotics, out of bed/ambulate Continue ceftriaxone IV. Blood sugars still high, start Lantus at 25 units HS (pt got 20 units last night. HTN controlled. COPD stable. CAD stable. Pt is on Vascepa.
[2020-02-24] MEDS: Fenofibrate Nanocrystallized 145 MG TAB PO SCH (20:28)
[2020-02-24] MEDS: Simvastatin 5 MG TAB PO SCH (20:29)
[2020-02-24] MEDS ORDERED: Insulin Glargine 25 UNITS in Pre-Filled Syringe 1 EACH SC SCH (21:00)
[2020-02-25] MEDS: Melatonin 3 MG TAB PO PRN (00:37)
[2020-02-25] MEDS: HumaLOG 300 UNITS/3 ML VIAL SC PRN (04:53)
[2020-02-25 06:44] LABS: #Eosinphils 0.1 thou/uL (0.0-0.7); #Monocytes 0.5 thou/uL (0.11-0.59); #Neutrophils 2.4 thou/uL (1.40-6.50); %Basophils 0.5 % (0.0-1.0); %Eosinophils 2.8 % (0.0-10.0); %Lymphocytes 38.7 % (21.0-51.0); %Monocytes 9.8 % (0.0-10.0); %Neutrophils 48.2 % (42.0-75.0); Hemoglobin 11.7 g/dL (12.0-16.0); Mean Corpuscular HGB CONC 32.6 g/dL (32.0-36.0); Mean Corpuscular Volume 91.9 fL (78.0-98.0); Mean Platelet Volume 6.9 fL (7.4-10.4); Platelet Count 251 thou/uL (130-400); RBC Distribution Width 12.5 % (11.5-14.5); Red Blood Cell (RBC) Count 3.89 mill/uL (4.20-5.40); White Blood Cell (WBC) Count 5.1 thou/uL (4.8-10.8)
[2020-02-25] MEDS: Mometasone 200 MCG/Formoterol 5 MCG 120 PUFF INHALER INH SCH (06:52)
[2020-02-25 06:57] LABS: Anion Gap 11 mmol/L (10-20); BUN (Urea Nitrogen) 18 mg/dL (9.8-20.1); Calc. Creatinine Clearance 74 mL/min (70-130); Calcium 8.2 mg/dL (7.8-10.44); Carbon Dioxide 22 mmol/L (23-31); Chloride 111 mmol/L (98-107); Estimated GFR-MDRD 51; Glucose 224 mg/dL (83-110); Potassium 3.8 mmol/L (3.5-5.1); Sodium 140 mmol/L (136-145)
[2020-02-25] MEDS: Icosapent Ethyl 1 GM CAPSULE PO SCH (08:46)
[2020-02-25] MEDS: Escitalopram Oxalate 10 mg Tablet PO SCH (08:47)
[2020-02-25] MEDS: guaiFENesin ER 600 MG TAB PO SCH (08:48)
[2020-02-25] MEDS: Aspirin Chewable 81 MG TAB PO SCH (08:48)
[2020-02-25] MEDS: Cyanocobalamin (Vitamin B-12) 1,000 MCG TAB PO SCH (08:48)
[2020-02-25] MEDS: Topiramate 25 MG TAB PO SCH (08:48)
[2020-02-25] MEDS: HYDROcodone/Acetaminophen 5/325 mg Tablet PO PRN (08:49)
[2020-02-25] MEDS: Heparin 5,000 UNITS/ML VIAL SC SCH (08:51)
[2020-02-25] MEDS: Sodium Chloride 0.9% 1,000 ML IV SCH (08:52)
[2020-02-25] MEDS ORDERED: Acetaminophen/Codeine 30-300mg Tablet PO PRN (09:50)
[2020-02-25] MEDS ORDERED: diphenhydrAMINE 25 MG CAP PO PRN (09:51)
[2020-02-25] MEDS ORDERED: Amoxicillin/Potassium Clav 875 MG TAB PO SCH ×2 (10:00→21:00)
[2020-02-25 11:50] VITALS: BP 137/79; TEMP 97.9
--- NOTE | 2020-02-26 01:01 | DIS ---
DATE OF ADMISSION: 02/22/2020 DATE OF DISCHARGE: 02/25/2020 PRIMARY CARE PROVIDER: Dr. Kerwin Ott. DISCHARGE DIAGNOSES: 1. Cellulitis. 2. Cellulitis, suspected to be secondary to pasteurella multocida infection. 3. Hyperglycemia. 4. Hyponatremia. 5. [id number] stage 3 renal failure. 6. Lactic acidosis. CONDITION OF PATIENT ON THE DAY OF DISCHARGE: Stable. I assessed Ms. Jewell on the day of discharge. She denies any chest pain or shortness of breath. Vital signs are stable. S1 and S2 are heard, regular. Lungs are clear to auscultation bilaterally. CONSULTATIONS DURING THIS HOSPITALIZATION: Infectious Diseases, Dr. Oviedo. HOSPITAL COURSE: Ms. Jewell is a pleasant 74-year-old lady who was admitted to [facility] on February 22, 2020 for left edgar cellulitis, most likely secondary to pasteurella multocida, since this was preceded by a cat bite. She was treated with intravenous antibiotics. She was seen by Infectious Diseases Service. She improved clinically. She also had [id number] stage 3 renal failure at the time of admission, which resolved. She also had markedly elevated blood sugars at the time of admission, which improved. She is being discharged home on Augmentin 875 mg 2 times a day for 1 more week. I am also giving her a prescription for Tylenol No. 3 one tablet every 6 hours as needed, 15 doses to be dispensed, and Benadryl 25 mg every 6 hours as needed, 30 doses to be dispensed. Otherwise, no change was made to her pre-admission home medications. Post-acute care followup: With primary care provider in 3 days. ACTIVITY: No restrictions. DIET: Diabetic and heart healthy. DISCHARGE DESTINATION: Home. TIME SPENT: Total amount of time spent coordinating this discharge: 32 minutes. Many thanks for allowing me to participate in your patient's care. Please feel free to contact me with any questions or concerns. Job ID: [id number]
== END 2020-02-25 11:21 | disposition home or self-care (01) | DRG 868 ==
LOC: ERS 09:31 → T4-B 10:59
PROVIDERS: ADMIT Internal Medicine; ATTEND Internal Medicine
DX: A28.0 Pasteurellosis (principal); E87.1 Hypo-osmolality and hyponatremia; N17.9 Acute kidney failure, unspecified; E87.2 Acidosis; J44.1 Chronic obstructive pulmonary disease with (acute) exacerbation; L03.116 Cellulitis of left lower limb; Z66 Do not resuscitate; E11.51 Type 2 diabetes mellitus with diabetic peripheral angiopathy without gangrene; L03.032 Cellulitis of left toe; N18.3 Chronic kidney disease, stage 3 (moderate); E11.65 Type 2 diabetes mellitus with hyperglycemia; I25.10 Atherosclerotic heart disease of native coronary artery without angina pectoris; I12.9 Hypertensive chronic kidney disease with stage 1 through stage 4 chronic kidney disease, or unspecified chronic kidney disease; E66.01 Morbid (severe) obesity due to excess calories; E11.22 Type 2 diabetes mellitus with diabetic chronic kidney disease; E86.0 Dehydration; E78.5 Hyperlipidemia, unspecified; I25.2 Old myocardial infarction; Z87.891 Personal history of nicotine dependence; Z88.6 Allergy status to analgesic agent; Z79.82 Long term (current) use of aspirin; Z90.710 Acquired absence of both cervix and uterus; Z88.8 Allergy status to other drugs, medicaments and biological substances; Z68.37 Body mass index [BMI] 37.0-37.9, adult; Z90.10 Acquired absence of unspecified breast and nipple; Z91.048 Other nonmedicinal substance allergy status; Z95.5 Presence of coronary angioplasty implant and graft; Z88.2 Allergy status to sulfonamides; Z79.899 Other long term (current) drug therapy; Z79.51 Long term (current) use of inhaled steroids; Z79.4 Long term (current) use of insulin
CPT/HCPCS: 36415; 36416; 80048; 80053; 83605; 83930; 85025; 87040; 94664; 96365; 96375; J0692; J0696; J1644; J1815; J3370; J3490; J7030; J7050

== ENCOUNTER 2021-01-05 09:24 | Inpatient (IN) | payer MEDICARE ==
[2021-01-05] MEDS ORDERED: Boostrix 0.5 ML (Tdap) VIAL ONE (10:19)
[2021-01-05 10:22] LABS: #Eosinphils 0.2 thou/uL (0.0-0.7); #Lymphocytes 1.2 thou/uL (1.20-3.40); #Monocytes 0.6 thou/uL (0.11-0.59); #Neutrophils 3.7 thou/uL (1.40-6.50); %Basophils 0.1 % (0.0-1.0); %Eosinophils 2.9 % (0.0-10.0); %Lymphocytes 21.9 % (21.0-51.0); %Monocytes 10.8 % (0.0-10.0); %Neutrophils 64.2 % (42.0-75.0); Hemoglobin 13.8 g/dL (12.0-16.0); Mean Corpuscular HGB CONC 34.3 g/dL (32.0-36.0); Mean Corpuscular Hemoglobin 30.9 pg (27.0-31.0); Mean Corpuscular Volume 90.2 fL (78.0-98.0); Mean Platelet Volume 7.5 fL (7.4-10.4); Platelet Count 199 thou/uL (130-400); RBC Distribution Width 12.8 % (11.5-14.5); Red Blood Cell (RBC) Count 4.48 mill/uL (4.20-5.40); White Blood Cell (WBC) Count 5.7 thou/uL (4.8-10.8)
[2021-01-05 10:45] LABS: ALT (SGPT) 15 U/L (8-55); AST (SGOT) 18 U/L (5-34); Albumin 3.5 g/dL (3.4-4.8); Alkaline Phosphatase 93 U/L (40-110); Anion Gap 18 mmol/L (10-20); BUN (Urea Nitrogen) 38 mg/dL (9.8-20.1); Bilirubin, Total 0.4 mg/dL (0.2-1.2); Calc. Creatinine Clearance 0 mL/min (70-130); Calcium 8.9 mg/dL (7.8-10.44); Carbon Dioxide 21 mmol/L (23-31); Chloride 102 mmol/L (98-107); Globulin 3.6 g/dL (2.4-3.5); Glucose 543 mg/dL (83-110); Potassium 4.5 mmol/L (3.5-5.1); Protein, Total 7.1 g/dL (5.8-8.1); Sodium 136 mmol/L (136-145)
[2021-01-05] MEDS ORDERED: Morphine 4 MG/ML VIAL ONE (11:40)
[2021-01-05] MEDS ORDERED: Vancomycin 1.5 GRAM/300 ML BAG 1.5 GM in Premix Bag 1 BAG IVPB SCH (11:45)
[2021-01-05] MEDS ORDERED: Ampicillin/Sulbactam 3 GM in Sodium Chloride 0.9% 100 ML IVPB SCH (11:45)
[2021-01-05] MEDS ORDERED: Ondansetron PF 4 MG/2 ML Vial IVP PRN (11:53)
[2021-01-05] MEDS ORDERED: Ondansetron ODT 4 MG TAB PO PRN (11:53)
[2021-01-05 13:25] LABS: Lactic Acid 1.6 mmol/L (0.5-2.2)
[2021-01-05] MEDS: Acetaminophen 325 MG TAB PO SCH ×3 (16:00→20:50)
[2021-01-05 16:05] VITALS: BMI 37.1
[2021-01-05] MEDS: Morphine 2 MG/ML VIAL SLOW IVP PRN (17:35)
[2021-01-05] MEDS: Mometasone 100 MCG/Formoterol 5 MCG 120 PUFF INHALER INH SCH (19:19)
[2021-01-05] MEDS ORDERED: Simvastatin 10 MG TAB PO SCH (21:00)
[2021-01-05] MEDS ORDERED: Dextrose 50% Abboject 50 ML SYRINGE SLOW IVP PRN (21:38)
[2021-01-05] MEDS ORDERED: Dextrose 5% in Water 1,000 ML IV PRN (21:38)
[2021-01-05] MEDS: HumaLOG 300 UNITS/3 ML VIAL SC PRN (22:52)
[2021-01-06] MEDS: Morphine 2 MG/ML VIAL SLOW IVP PRN ×3 (01:05→17:49)
[2021-01-06] MEDS: Sodium Chloride 0.9% 1,000 ML IV SCH ×2 (01:08→16:09)
[2021-01-06] MEDS: Ampicillin/Sulbactam 3 GM in Sodium Chloride 0.9% 100 ML IVPB SCH ×4 (01:08→17:45)
[2021-01-06] MEDS: Acetaminophen 325 MG TAB PO SCH ×5 (02:17→17:39)
[2021-01-06 02:23] LABS: SARS-CoV-2 PCR by NAA Not Detected (NotDetected)
[2021-01-06] MEDS: HumaLOG 300 UNITS/3 ML VIAL SC PRN ×2 (05:23→12:07)
[2021-01-06] MEDS ORDERED: Mometasone 200 MCG/Formoterol 5 MCG 120 PUFF INHALER INH SCH (06:30)
[2021-01-06] MEDS: Mometasone 100 MCG/Formoterol 5 MCG 120 PUFF INHALER INH SCH ×2 (06:53→21:00)
[2021-01-06 06:58] LABS: #Eosinphils 0.2 thou/uL (0.0-0.7); #Lymphocytes 1.5 thou/uL (1.20-3.40); #Monocytes 0.6 thou/uL (0.11-0.59); #Neutrophils 2.1 thou/uL (1.40-6.50); %Basophils 0.2 % (0.0-1.0); %Eosinophils 5.1 % (0.0-10.0); %Lymphocytes 33.9 % (21.0-51.0); %Monocytes 13.1 % (0.0-10.0); %Neutrophils 47.6 % (42.0-75.0); Hemoglobin 11.7 g/dL (12.0-16.0); Mean Corpuscular HGB CONC 33.8 g/dL (32.0-36.0); Mean Corpuscular Hemoglobin 30.8 pg (27.0-31.0); Mean Corpuscular Volume 91.3 fL (78.0-98.0); Mean Platelet Volume 7.3 fL (7.4-10.4); Platelet Count 197 thou/uL (130-400); RBC Distribution Width 12.5 % (11.5-14.5); Red Blood Cell (RBC) Count 3.79 mill/uL (4.20-5.40); White Blood Cell (WBC) Count 4.5 thou/uL (4.8-10.8)
[2021-01-06 07:15] LABS: Anion Gap 11 mmol/L (10-20); BUN (Urea Nitrogen) 32 mg/dL (9.8-20.1); Calc. Creatinine Clearance 77 mL/min (70-130); Carbon Dioxide 20 mmol/L (23-31); Chloride 110 mmol/L (98-107); Glucose 335 mg/dL (83-110); Sodium 137 mmol/L (136-145)
[2021-01-06] MEDS: Topiramate 25 MG TAB PO SCH ×2 (08:40→21:00)
[2021-01-06] MEDS: Escitalopram Oxalate 20 mg Tablet PO SCH (08:40)
[2021-01-06] MEDS: ALPRAZolam 0.5 MG TAB PO SCH (08:41)
[2021-01-06] MEDS: Aspirin Chewable 81 MG TAB PO SCH (08:41)
[2021-01-06] MEDS: HumuLIN 70/30 (300 UNITS/3 ML VIAL) SC SCH ×2 (08:42→21:05)
[2021-01-06] MEDS: Enoxaparin Sodium 40 MG/0.4 ML SYRINGE SC SCH (08:43)
[2021-01-06] MEDS ORDERED: TIOTROPIUM BROMIDE INH SCH (09:00)
[2021-01-06] MEDS: Meloxicam 7.5 MG TAB PO SCH (20:59)
[2021-01-06] MEDS: Atorvastatin Calcium 40 MG TAB PO SCH (21:01)
[2021-01-06] MEDS: Montelukast Sodium 10 mg Tablet PO SCH (21:01)
[2021-01-07] MEDS: Acetaminophen 325 MG TAB PO SCH ×7 (00:46→20:25)
[2021-01-07] MEDS: Ampicillin/Sulbactam 3 GM in Sodium Chloride 0.9% 100 ML IVPB SCH ×4 (00:47→18:04)
[2021-01-07 06:27] LABS: #Eosinphils 0.2 thou/uL (0.0-0.7); #Lymphocytes 1.6 thou/uL (1.20-3.40); #Monocytes 0.6 thou/uL (0.11-0.59); #Neutrophils 2.7 thou/uL (1.40-6.50); %Basophils 0.3 % (0.0-1.0); %Eosinophils 4.1 % (0.0-10.0); %Lymphocytes 30.5 % (21.0-51.0); %Monocytes 11.8 % (0.0-10.0); %Neutrophils 53.2 % (42.0-75.0); Mean Corpuscular HGB CONC 33.9 g/dL (32.0-36.0); Mean Corpuscular Hemoglobin 30.6 pg (27.0-31.0); Mean Corpuscular Volume 90.3 fL (78.0-98.0); Mean Platelet Volume 7.1 fL (7.4-10.4); Platelet Count 194 thou/uL (130-400); RBC Distribution Width 12.4 % (11.5-14.5); Red Blood Cell (RBC) Count 3.93 mill/uL (4.20-5.40); White Blood Cell (WBC) Count 5.1 thou/uL (4.8-10.8)
[2021-01-07] MEDS: HumaLOG 300 UNITS/3 ML VIAL SC PRN ×3 (06:42→20:18)
[2021-01-07] MEDS: Mometasone 100 MCG/Formoterol 5 MCG 120 PUFF INHALER INH SCH ×2 (06:46→20:26)
[2021-01-07 06:52] LABS: Anion Gap 12 mmol/L (10-20); BUN (Urea Nitrogen) 24 mg/dL (9.8-20.1); Calc. Creatinine Clearance 75 mL/min (70-130); Calcium 8.3 mg/dL (7.8-10.44); Carbon Dioxide 23 mmol/L (23-31); Chloride 108 mmol/L (98-107); Glucose 381 mg/dL (83-110); Potassium 4.6 mmol/L (3.5-5.1); Sodium 138 mmol/L (136-145)
[2021-01-07] MEDS: Morphine 2 MG/ML VIAL SLOW IVP PRN ×2 (09:11→14:25)
[2021-01-07] MEDS: Meloxicam 7.5 MG TAB PO SCH ×2 (09:17→20:17)
[2021-01-07] MEDS: ALPRAZolam 0.5 MG TAB PO SCH (09:21)
[2021-01-07] MEDS: Aspirin Chewable 81 MG TAB PO SCH (09:22)
[2021-01-07] MEDS: Escitalopram Oxalate 20 mg Tablet PO SCH (09:23)
[2021-01-07] MEDS: Topiramate 25 MG TAB PO SCH ×2 (09:23→20:17)
[2021-01-07] MEDS: Enoxaparin Sodium 40 MG/0.4 ML SYRINGE SC SCH (09:24)
[2021-01-07] MEDS: HumuLIN 70/30 (300 UNITS/3 ML VIAL) SC SCH ×2 (09:26→20:26)
[2021-01-07] MEDS: Atorvastatin Calcium 40 MG TAB PO SCH (20:17)
[2021-01-07] MEDS: Montelukast Sodium 10 mg Tablet PO SCH (20:18)
[2021-01-07] MEDS ORDERED: Lantus 1000 UNITS/10 ML VIAL SC SCH (21:00)
[2021-01-08] MEDS: Ampicillin/Sulbactam 3 GM in Sodium Chloride 0.9% 100 ML IVPB SCH ×2 (01:17→06:02)
[2021-01-08] MEDS: Morphine 2 MG/ML VIAL SLOW IVP PRN (01:49)
[2021-01-08] MEDS: Acetaminophen 325 MG TAB PO SCH ×3 (05:21→12:35)
[2021-01-08 05:58] LABS: Anion Gap 12 mmol/L (10-20); BUN (Urea Nitrogen) 22 mg/dL (9.8-20.1); Calc. Creatinine Clearance 84 mL/min (70-130); Calcium 8.4 mg/dL (7.8-10.44); Carbon Dioxide 23 mmol/L (23-31); Chloride 109 mmol/L (98-107); Glucose 299 mg/dL (83-110); Sodium 140 mmol/L (136-145)
[2021-01-08] MEDS: HumaLOG 300 UNITS/3 ML VIAL SC PRN ×2 (06:00→13:18)
[2021-01-08] MEDS: Mometasone 100 MCG/Formoterol 5 MCG 120 PUFF INHALER INH SCH (07:26)
[2021-01-08] MEDS ORDERED: Cyanocobalamin (Vitamin B-12) 1,000 MCG TAB PO SCH (09:00)
[2021-01-08] MEDS ORDERED: Losartan 25 MG TAB PO SCH (09:00)
[2021-01-08] MEDS ORDERED: Fluconazole 100 MG TAB PO SCH (09:00)
[2021-01-08] MEDS ORDERED: Chlorthalidone 25 MG TAB PO SCH (09:00)
[2021-01-08] MEDS: Topiramate 25 MG TAB PO SCH (10:03)
[2021-01-08] MEDS: ALPRAZolam 0.5 MG TAB PO SCH (10:04)
[2021-01-08] MEDS: Aspirin Chewable 81 MG TAB PO SCH (10:05)
[2021-01-08] MEDS: Enoxaparin Sodium 40 MG/0.4 ML SYRINGE SC SCH (10:06)
[2021-01-08] MEDS: Escitalopram Oxalate 20 mg Tablet PO SCH (10:06)
[2021-01-08] MEDS: Meloxicam 7.5 MG TAB PO SCH (10:13)
[2021-01-08] MEDS: HumuLIN 70/30 (300 UNITS/3 ML VIAL) SC SCH (10:44)
[2021-01-08] MEDS ORDERED: Amoxicillin/Potassium Clav 875 MG TAB PO SCH ×2 (10:45→21:00)
[2021-01-08 11:47] VITALS: BP 141/74; TEMP 98.1
[2021-01-08] MEDS ORDERED: HumuLIN 70/30 (300 UNITS/3 ML VIAL) SC SCH (17:00)
[2021-01-09] MEDS ORDERED: Lantus 1000 UNITS/10 ML VIAL SC SCH (09:00)
== END 2021-01-08 13:45 | disposition home or self-care (01) | DRG 872 ==
LOC: ERS 09:24 → ERHOLD 11:50 → T4-A 15:00
PROVIDERS: ADMIT Internal Medicine; ATTEND Internal Medicine
DX: A41.9 Sepsis, unspecified organism (principal); L03.116 Cellulitis of left lower limb; N17.9 Acute kidney failure, unspecified; E87.2 Acidosis; E78.5 Hyperlipidemia, unspecified; J44.9 Chronic obstructive pulmonary disease, unspecified; I25.10 Atherosclerotic heart disease of native coronary artery without angina pectoris; I12.9 Hypertensive chronic kidney disease with stage 1 through stage 4 chronic kidney disease, or unspecified chronic kidney disease; E66.9 Obesity, unspecified; E11.65 Type 2 diabetes mellitus with hyperglycemia; E11.51 Type 2 diabetes mellitus with diabetic peripheral angiopathy without gangrene; E11.22 Type 2 diabetes mellitus with diabetic chronic kidney disease; Z20.822 Contact with and (suspected) exposure to COVID-19; N18.2 Chronic kidney disease, stage 2 (mild); I25.2 Old myocardial infarction; Z88.5 Allergy status to narcotic agent; Z88.2 Allergy status to sulfonamides; Z88.1 Allergy status to other antibiotic agents; Z90.49 Acquired absence of other specified parts of digestive tract; Z90.710 Acquired absence of both cervix and uterus; Z95.5 Presence of coronary angioplasty implant and graft; Z78.9 Other specified health status; Z68.37 Body mass index [BMI] 37.0-37.9, adult
CPT/HCPCS: 36415; 36416; 80048; 80053; 83605; 85025; 87040; 87635; 90471; 90715; 96365; 96367; 96375; J0295; J1650; J1815; J2270; J3370; J3490; U0003; U0005

== ENCOUNTER 2021-05-23 09:43 | Outpatient (CLI) | payer MEDICARE ==
[2021-05-24 01:12] LABS: SARS-CoV-2 PCR by NAA Not Detected (NotDetected)
== END 2021-05-23 09:44 | disposition home or self-care (01) ==
LOC: LABBT 09:43
PROVIDERS: ATTEND Internal Medicine
DX: Z01.812 Encounter for preprocedural laboratory examination (principal); Z20.822 Contact with and (suspected) exposure to COVID-19
CPT/HCPCS: U0003; U0005

== ENCOUNTER 2021-05-26 06:02 | Day surgery (SDC) | payer MEDICARE ==
[2021-05-25 14:16] VITALS: BMI 37.4
[2021-05-26] MEDS ORDERED: Fentanyl 100 MCG/2 ML VIAL ONE (07:18)
[2021-05-26] MEDS ORDERED: Insulin Regular 300 UNITS/3 ML VIAL ONE ×2 (07:40→07:41)
[2021-05-26] MEDS ORDERED: Ketamine 50 MG/ML (10ML VIAL) ONE (08:05)
[2021-05-26] MEDS ORDERED: Lidocaine 1% PF 5 ML VIAL ONE (08:15)
[2021-05-26] MEDS ORDERED: PROPOFOL 200 MG/20 ML VIAL ONE (08:15)
== END 2021-05-26 09:50 | disposition home or self-care (01) ==
LOC: SDC 06:02
PROVIDERS: ATTEND Internal Medicine
PROC: 0DBM8ZX Excision of Descending Colon, Via Natural or Artificial Opening Endoscopic, Diagnostic (ICD-10-PCS; principal; 2021-05-26)
PROC: 0DBN8ZX Excision of Sigmoid Colon, Via Natural or Artificial Opening Endoscopic, Diagnostic (ICD-10-PCS; 2021-05-26)
DX: Z12.11 Encounter for screening for malignant neoplasm of colon (principal); D12.4 Benign neoplasm of descending colon; D12.5 Benign neoplasm of sigmoid colon; K57.30 Diverticulosis of large intestine without perforation or abscess without bleeding; K64.8 Other hemorrhoids; K64.4 Residual hemorrhoidal skin tags; I25.10 Atherosclerotic heart disease of native coronary artery without angina pectoris; J44.9 Chronic obstructive pulmonary disease, unspecified; E11.9 Type 2 diabetes mellitus without complications; M19.90 Unspecified osteoarthritis, unspecified site; I48.91 Unspecified atrial fibrillation; I10 Essential (primary) hypertension; I25.2 Old myocardial infarction; Z86.010 Personal history of colon polyps; Z79.1 Long term (current) use of non-steroidal anti-inflammatories (NSAID); Z79.4 Long term (current) use of insulin; Z79.82 Long term (current) use of aspirin; Z79.899 Other long term (current) drug therapy; Z88.2 Allergy status to sulfonamides; Z88.5 Allergy status to narcotic agent; Z88.1 Allergy status to other antibiotic agents; Z91.048 Other nonmedicinal substance allergy status; Z95.5 Presence of coronary angioplasty implant and graft
CPT/HCPCS: 36416; 88305; J1815; J2704; J3010; J7620

== ENCOUNTER 2021-07-27 13:03 | Outpatient (CLI) | payer MEDICARE | END 2021-07-27 13:04 | disposition home or self-care (01) | LOC: BICMAMMO 13:03 | PROVIDERS: ATTEND Family Medicine | DX: Z12.31 Encounter for screening mammogram for malignant neoplasm of breast (principal); Z91.89 Other specified personal risk factors, not elsewhere classified; Z80.3 Family history of malignant neoplasm of breast | CPT/HCPCS: 77063; 77067 ==

== ENCOUNTER 2021-08-08 09:50 | Emergency (ER) | payer MEDICARE ==
[2021-08-08] MEDS ORDERED: Ondansetron PF 4 MG/2 ML Vial ONE (11:39)
[2021-08-08] MEDS ORDERED: cefTRIAXone\\ROCEPHIN 2 GM VIAL ONE (11:39)
[2021-08-08] MEDS ORDERED: Morphine 4 MG/ML VIAL ONE (11:40)
[2021-08-08 12:00] LABS: #Basophils 0.1 thou/uL (0.0-0.2); #Eosinphils 0.2 thou/uL (0.0-0.7); #Lymphocytes 1.4 thou/uL (1.20-3.40); #Monocytes 0.6 thou/uL (0.11-0.59); #Neutrophils 3.2 thou/uL (1.40-6.50); %Basophils 1.1 % (0.0-1.0); %Lymphocytes 26.3 % (21.0-51.0); %Monocytes 10.2 % (0.0-10.0); %Neutrophils 59.4 % (42.0-75.0); Hemoglobin 13.9 g/dL (12.0-16.0); Mean Corpuscular HGB CONC 32.5 g/dL (32.0-36.0); Mean Corpuscular Hemoglobin 29.4 pg (27.0-31.0); Mean Corpuscular Volume 90.3 fL (78.0-98.0); Mean Platelet Volume 7.4 fL (7.4-10.4); Platelet Count 215 thou/uL (130-400); RBC Distribution Width 12.8 % (11.5-14.5); Red Blood Cell (RBC) Count 4.75 mill/uL (4.20-5.40); White Blood Cell (WBC) Count 5.4 thou/uL (4.8-10.8)
[2021-08-08 12:21] LABS: ALT (SGPT) 22 U/L (8-55); AST (SGOT) 21 U/L (5-34); Albumin 3.9 g/dL (3.4-4.8); Alkaline Phosphatase 81 U/L (40-110); Anion Gap 16 mmol/L (10-20); BUN (Urea Nitrogen) 35 mg/dL (9.8-20.1); Bilirubin, Total 0.4 mg/dL (0.2-1.2); Calc. Creatinine Clearance 0 mL/min (70-130); Calcium 9.5 mg/dL (7.8-10.44); Carbon Dioxide 24 mmol/L (23-31); Chloride 105 mmol/L (98-107); Globulin 2.8 g/dL (2.4-3.5); Glucose 354 mg/dL (83-110); Potassium 4.5 mmol/L (3.5-5.1); Protein, Total 6.7 g/dL (5.8-8.1); Sodium 140 mmol/L (136-145)
== END 2021-08-08 13:20 | disposition home or self-care (01) ==
LOC: ERS 09:50
DX: L03.116 Cellulitis of left lower limb (principal); R06.2 Wheezing; E11.9 Type 2 diabetes mellitus without complications; I10 Essential (primary) hypertension; I25.2 Old myocardial infarction; I25.10 Atherosclerotic heart disease of native coronary artery without angina pectoris; J44.9 Chronic obstructive pulmonary disease, unspecified; Z87.891 Personal history of nicotine dependence; Z79.82 Long term (current) use of aspirin; Z79.899 Other long term (current) drug therapy
CPT/HCPCS: 36415; 80053; 83605; 85025; 87040; 96365; 96375; J0696; J2270; J2405

== ENCOUNTER 2021-08-12 08:43 | Outpatient (CLI) | payer MEDICARE | END 2021-08-12 08:44 | disposition home or self-care (01) | LOC: RAD 08:43 | PROVIDERS: ATTEND Internal Medicine Critical Care Medicine | DX: R06.00 Dyspnea, unspecified (principal) | CPT/HCPCS: 71046 ==